=== PATIENT | female | born 1995 | race Hispanic/Latino ===

== ENCOUNTER 2017-12-22 19:07 | Inpatient (IN) | payer SELFPAY ==
[~2017-12-22] VITALS: Ht 157.5 cm; Wt 49.9 kg
[2017-12-22 19:18] LABS: BASOPHIL (%) 0.4 % (0-1); EOSINOPHIL (%) 0.6 % (0-5); EOSINOPHIL COUNT 0.1 K/uL (0-0.3); HEMATOCRIT 39.5 % (36.0-46.0); HEMOGLOBIN 13.9 G/DL (11.9-15.5); IMMATURE GRANULOCYTE (%) 0.6 % (0.0-0.7); LYMPHOCYTE (%) 16.6 % (15-42); LYMPHOCYTE COUNT 1.7 K/uL (1.0-2.8); MCH 31.7 PG (29.0-34.0); MCHC 35.2 G/DL (30.0-36.0); MONOCYTE (%) 5.6 % (3-12); MONOCYTE COUNT 0.6 K/uL (0-0.8); NEUTROPHIL (%) 76.2 % (45-76); NEUTROPHIL COUNT 7.8 K/uL (1.8-6.4); PLATELET COUNT 140 K/uL (156-360); RBC DIS.WIDTH-SD 39.3 % (39-53); RED BLOOD COUNT 4.39 M/uL (3.80-5.20); WHITE BLOOD COUNT 10.3 K/uL (4.1-10.2)
[2017-12-22 19:29] LABS: AMYLASE 57 IU/L (1-118); CHLORIDE 106 mEq/L (99-109); POTASSIUM 3.4 mEq/L (3.7-5.4); SODIUM 136 mEq/L (136-147)
[2017-12-22 19:30] LABS: GLUCOSE 95 mg/dL (70-99)
[2017-12-22 19:33] LABS: SERUM ETHYL ALCOHOL < 10 mg/dL
[2017-12-22 19:34] LABS: CREATININE 0.6 mg/dL (0.6-1.3)
[2017-12-22 19:35] LABS: GFR ESTIMATE (CALCULATED) > 59 mL/min/; UREA NITROGEN (BUN) 9 mg/dL (9-23)
[2017-12-22 19:37] LABS: LIPASE 26 U/L (1.0-51.0)
[2017-12-22 19:43] LABS: QUANTITATIVE HCG < 4.0 MIU/ML
[2017-12-22] MEDS ORDERED: NEXPLANON68 MG SC (20:49)
[2017-12-22 21:22] LABS: APPEARANCE CLEAR ((CLEAR)); BILIRUBIN NEGATIVE; BLOOD NEGATIVE; COLOR YELLOW ((YELLOW)); GLUCOSE (STRIP) NEGATIVE; KETONES 20; LEUKOCYTES NEGATIVE; NITRITE NEGATIVE; PROTEIN (STRIP) NEGATIVE; SPECIFIC GRAVITY 1.013 (1.000-1.030); UCUL ADDED? NO; UROBILINOGEN 0.2 MG/DL (0.2-1.0)
[2017-12-22 21:30] LABS: AMPHETAMINE NEGATIVE (500 ng/mL); BARBITURATES NEGATIVE (200 ng/mL); BENZODIAZEPINES NEGATIVE (150 ng/mL); BUPRENORPHINE NEGATIVE (10 ng/mL); COCAINE NEGATIVE (150 ng/mL); METHADONE NEGATIVE (200 ng/mL); METHAMPHETAMINE NEGATIVE (500 ng/mL); OPIATES (MORPHINE) NEGATIVE (100 ng/mL); OXYCODONE NEGATIVE (100 ng/mL); PHENCYCLIDINE NEGATIVE (25 ng/mL); PROPOXYPHENE NEGATIVE (300 ng/mL); THC CANNABINOIDS NEGATIVE (50 ng/mL); TRICYCLIC ANTIDEPRESSANTS NEGATIVE (300 ng/mL)
[2017-12-22 21:49] LABS: HEMATOCRIT 36.1 % (36.0-46.0); HEMOGLOBIN 12.8 G/DL (11.9-15.5); MCH 31.8 PG (29.0-34.0); MCHC 35.5 G/DL (30.0-36.0); MCV 89.6 FL (83-99); PLATELET COUNT 128 K/uL (156-360); RED BLOOD COUNT 4.03 M/uL (3.80-5.20); WHITE BLOOD COUNT 15.5 K/uL (4.1-10.2)
[2017-12-22 23:34] VITALS: BP 119/74
[2017-12-23 04:30] VITALS: BP 108/59
[2017-12-23 08:30] VITALS: BP 109/59
[2017-12-23 12:30] VITALS: BP 115/60
[2017-12-23 15:00] VITALS: BP 120/62
[2017-12-23 19:31] VITALS: BP 100/51
[2017-12-24 00:21] VITALS: BP 116/56
[2017-12-24 03:27] VITALS: BP 115/67
[2017-12-24 08:12] VITALS: BP 106/53
[2017-12-24 10:03] LABS: HEMATOCRIT 28.5 % (36.0-46.0); MCV 92.2 FL (83-99)
[2017-12-24] MEDS ORDERED: ASPIRIN EC325 MG PO (10:25)
[2017-12-24] MEDS ORDERED: ENDOCET 5-3251 EACH PO (10:25)
[2017-12-24 12:13] VITALS: BP 110/62
== END 2017-12-24 14:31 | disposition home or self-care (01) | DRG 482 ==
LOC: TRA 19:07 → EDOF 22:15 → 3EAST 22:15 → ENRESERV 22:16 → 3EAST 23:12
PROVIDERS: Emergency Medicine Emergency Medical Services; Orthopaedic Surgery; Physician Assistant Surgical
PROC: 0QS836Z Reposition Right Femoral Shaft with Intramedullary Internal Fixation Device, Percutaneous Approach (ICD-10-PCS; principal; 2017-12-22)
DX: S72.351A Displaced comminuted fracture of shaft of right femur, initial encounter for closed fracture (principal); W19.XXXA Unspecified fall, initial encounter; Y93.23 Activity, snow (alpine) (downhill) skiing, snowboarding, sledding, tobogganing and snow tubing
CPT/HCPCS: 71045; 73552; 76000; 80048; 81003; 82150; 83690; 84702; 85014; 85018; 85025; 85027; 86850; 86900; 86901; 99281; 99283; C1713; G0480; J0690; J1170; J1644; J2175; J2250; J2270; J2405; J3010; J7120